=== PATIENT | female | born 2000 | race Caucasian/White ===

== ENCOUNTER 2022-05-24 19:18 | Emergency (ER) | payer MEDICAID ==
[~2022-05-24] VITALS: Ht 160 cm; Wt 75.0 kg
[2022-05-24 19:23] VITALS: BP 110/68
== END 2022-05-24 22:00 | disposition left against medical advice (07) ==
LOC: ER 19:18
DX: Z53.21 Procedure and treatment not carried out due to patient leaving prior to being seen by health care provider (principal)